=== PATIENT | female | born 2000 | race Caucasian/White ===

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

== ENCOUNTER 2021-09-16 15:18 | Emergency (ER) | payer MEDICAID, OTHER ==
[~2021-09-16] VITALS: Ht 152.4 cm; Wt 51.3 kg
[2021-09-16 15:21] VITALS: BP 90/67
--- NOTE | 2021-09-16 15:32 | NUR ---
PT AMB TO BED 7.
[2021-09-16] MEDS ORDERED: DOPPLER MC ONE (15:34)
[2021-09-16] MEDS ORDERED: NACL 0.9% 1,000 ML IV ONE (15:55)
--- NOTE | 2021-09-16 16:09 | NUR ---
21Y FEMALE BIB SELF WITH C/O VAGINAL BLEEDING AND DIZZINESSX 5 DAYS. LMP 07/07/21. 10 WEEKS . BP 90/67 AT THIS TIME. PER PATIENT THE BLEEDING STARTED OFF PINK, STARTED TO TURN BROWN, AND THEN BECAME DARK RED. PT DENIES ANY PAIN AT THIS TIME. HEART TONES HEARD. PMH: DENIES NKA
--- NOTE | 2021-09-16 16:29 | NUR ---
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 IV FLUIDS WERE STARTED.
[2021-09-16 16:33] LABS: BASOPHILS % (AUTO) 0.4 % (0.0-2.0); EOSINOPHILS # (AUTO) 0.2 K/uL (0-0.4); EOSINOPHILS % (AUTO) 3.7 % (0.0-4.0); HEMATOCRIT 37.3 % (36-48); LYMPHOCYTES # (AUTO) 1.8 K/uL (2.5-16.5); LYMPHOCYTES % (AUTO) 32.2 % (20.5-51.1); MEAN CORPUSCULAR HEMOGLOBIN 31 pg (27-31); MEAN CORPUSCULAR HGB CONC 35 g/dL (33-37); MEAN CORPUSCULAR VOLUME 88.1 fL (80-94); MONOCYTES # (AUTO) 0.3 K/uL (0.8-1.0); MONOCYTES % (AUTO) 6.1 % (1.7-9.3); NEUTROPHILS # (AUTO) 3.3 K/uL (1.8-7.7); NEUTROPHILS % (AUTO) 57.6 % (42.2-75.2); PLATELET COUNT (AUTO) 246 K/uL (140-450); RED BLOOD CELL COUNT(AUTO) 4.24 MIL/uL (4.20-5.40); WHITE BLOOD COUNT (AUTO) 5.7 K/uL (4.8-10.8)
[2021-09-16 16:34] LABS: APPEARANCE,URINE CLEAR (CLEAR); BILIRUBIN,URINE NEGATIVE (NEGATIVE); BLOOD, URINE 1+ (NEGATIVE); COLOR,URINE YELLOW (YELLOW); LEUKOCYTE ESTERASE ,URINE NEGATIVE (NEGATIVE); NITRITE, URINE NEGATIVE (NEGATIVE); UGLUCOSE NEGATIVE (NEGATIVE)
[2021-09-16 16:56] LABS: RBC,URINE 0-5 /HPF (0-5)
[2021-09-16 16:57] LABS: WBC,URINE NONE SEEN /HPF (0-5)
[2021-09-16 17:38] VITALS: BP 96/52
== END 2021-09-16 17:38 | disposition home or self-care (01) ==
LOC: MED 15:18
DX: O20.0 Threatened abortion (principal); O99.281 Endocrine, nutritional and metabolic diseases complicating pregnancy, first trimester; E86.0 Dehydration; O99.351 Diseases of the nervous system complicating pregnancy, first trimester; R42 Dizziness and giddiness; Z3A.10 10 weeks gestation of pregnancy
CPT/HCPCS: 36415; 81001; 81025; 85025; 87086; 96360; 99283; J7030

== ENCOUNTER 2021-09-24 22:03 | Emergency (ER) | payer MEDICAID ==
[~2021-09-24] VITALS: Ht 152.4 cm; Wt 51.7 kg
[2021-09-24 22:17] VITALS: BP 108/62
--- NOTE | 2021-09-25 00:17 | NUR ---
PT TAKEN TO BED 5
[2021-09-25] MEDS: ACETAMINOPHEN 325 MG TAB PO ONE (00:35)
[2021-09-25 00:56] LABS: BASOPHILS % (AUTO) 0.4 % (0.0-2.0); EOSINOPHILS # (AUTO) 0.4 K/uL (0-0.4); HEMATOCRIT 36.4 % (36-48); HEMOGLOBIN 12.6 g/dL (12.0-16.0); LYMPHOCYTES # (AUTO) 2.7 K/uL (2.5-16.5); LYMPHOCYTES % (AUTO) 35.4 % (20.5-51.1); MEAN CORPUSCULAR HEMOGLOBIN 31 pg (27-31); MEAN CORPUSCULAR HGB CONC 35 g/dL (33-37); MEAN CORPUSCULAR VOLUME 88.3 fL (80-94); MONOCYTES # (AUTO) 0.5 K/uL (0.8-1.0); MONOCYTES % (AUTO) 6.3 % (1.7-9.3); NEUTROPHILS % (AUTO) 52.9 % (42.2-75.2); PLATELET COUNT (AUTO) 249 K/uL (140-450); RED BLOOD CELL COUNT(AUTO) 4.12 MIL/uL (4.20-5.40); RED CELL DISTRIBUTION WIDTH 12.9 % (11.6-13.7); WHITE BLOOD COUNT (AUTO) 7.6 K/uL (4.8-10.8)
--- NOTE | 2021-09-25 00:56 | NUR ---
21 YO F BIB SELF FOR ABDOMINAL CRAMPING AND BLEEDING. PT IS 11 WEEKS . . PT STARTED SPOTTING ABOUT 10 DAYS AGO. PT STATES PAIN 5/10 WHEN ACTIVELY CRAMPING. PT STATES ITS LIKE A BURNING SENSATION. PT STATES NO PAIN DURING URINATION. PT WAS SEEN LAST WEEK AT ER FOR WEAKNESS/NAUSEA. PT STATES NO PMH, NKA AND NO HOME MEDS. PT STATES SHE HAD TO LEAVE WORK TODAY BECUASE THE CRAMPING WAS SO BAD.
--- NOTE | 2021-09-25 00:57 | NUR ---
Dr. Modi examining patient.
--- NOTE | 2021-09-25 01:02 | NUR ---
PT DOES NOT WANT MED AT THIS TIME.
--- NOTE | 2021-09-25 01:17 | NUR ---
GAVE URINE TO RAY
[2021-09-25 01:20] LABS: APPEARANCE,URINE SL CLOUDY (CLEAR); BILIRUBIN,URINE NEGATIVE (NEGATIVE); BLOOD, URINE 3+ (NEGATIVE); COLOR,URINE YELLOW (YELLOW); LEUKOCYTE ESTERASE ,URINE NEGATIVE (NEGATIVE); NITRITE, URINE NEGATIVE (NEGATIVE); UGLUCOSE NEGATIVE (NEGATIVE)
[2021-09-25 01:43] LABS: WBC,URINE 0-5 /HPF (0-5)
[2021-09-25 01:44] LABS: URINE AMORPHOUS URATE 2+ /HPF (None Seen)
--- NOTE | 2021-09-25 02:00 | NUR ---
Ultrasound at bedside.
--- NOTE | 2021-09-25 04:40 | NUR ---
Patient appears to be resting comfortably in bed. Vital Signs within normal limits. Respirations even and unlabored.
--- NOTE | 2021-09-25 05:20 | NUR ---
AT BEDSIDE REASSURING PT WE ARE AWAITING ULTRASOUND RESULTS . PT WOULD LIKE TO WAIT FOR RESULTS.
--- NOTE | 2021-09-25 07:39 | NUR ---
update was given to pt at this time. pt ambulated with even steady gait to bathroom at this time. not c/o pain or worsening symptoms at this time.
[2021-09-25] MEDS ORDERED: NITR100C7 PO (07:42)
--- NOTE | 2021-09-25 09:04 | NUR ---
in room with pt explaining us results at this time
[2021-09-25 09:07] VITALS: BP 91/42
--- NOTE | 2021-09-25 09:07 | NUR ---
Patient discharged with v/s stable. Written and verbal after care instructions given and explained. Patient alert, oriented and verbalized understanding of instructions. Ambulatory with steady gait. All questions addressed prior to discharge. ID band removed. Patient advised to follow up with PMD. Rx of macrobid (sent) given. Patient educated on indication of medication including possible reaction and side effects. Opportunity to ask questions provided and answered.
== END 2021-09-25 09:07 | disposition home or self-care (01) ==
LOC: MED 22:03
DX: O02.1 Missed abortion (principal); O98.811 Other maternal infectious and parasitic diseases complicating pregnancy, first trimester; R82.71 Bacteriuria; Z3A.11 11 weeks gestation of pregnancy; Z79.899 Other long term (current) drug therapy
CPT/HCPCS: 36415; 76817; 81001; 84702; 85025; 87086; 99285; Q0092